=== PATIENT | female | born 1990 | race Caucasian/White ===

== ENCOUNTER 2024-03-03 04:46 | Inpatient (IN) | payer OTHER, SELFPAY ==
[2024-03-03] VITALS (11 sets, daily range): BP systolic 100–168; BP diastolic 57–100; PULSE 77–115; RESP 16–18; TEMP 36.8–37.4; O2SAT 98
[2024-03-03 06:50] LABS: Basophils Absolute Auto 0.1 K/mm3 (0.0-0.1); Basophils Percent Auto 0.2 % (0.2-1.2); Eosinophils Absolute Auto 0.1 K/mm3 (0-0.3); Eosinophils Percent Auto 0.3 % (0-4.4); Hematocrit 33.9 % (37.0-47.0); Immature Granulocyte Absolute 0.11 K/mm3 (0.00-0.031); Immature Granulocyte Percent A 0.5 % (0-0.5); Lymphocytes Percent Auto 15.7 % (18.3-44.2); Mean Corpuscular HGB Conc 32.4 g/dl (32-36); Mean Corpuscular Hemoglobin 29.6 pg (26-34); Mean Corpuscular Volume 91.4 fl (80-100); Mean Platelet Volume 11.4 fl (7.4-10.4); Monocytes Absolute Auto 1.4 K/mm3 (0.1-0.6); Monocytes Percent Auto 6.6 % (2.6-8.5); Neutrophils Absolute Auto 16.2 K/mm3 (1.3-6.7); Neutrophils Percent Auto 76.7 % (45.5-73.1); Platelet Count Result 297 k/mm3 (150-375); Red Blood Count 3.71 M/mm3 (4.2-5.4); Red Cell Distribution Width 13.2 % (11.5-14.5); White Blood Count 21.1 K/mm3 (4.5-10.0)
[2024-03-03] MEDS: OXYTOCIN 30 UNITS/NS 500 ML 30 UNITS/500 ML BAG 999 UNITS IV CONT (07:22)
[2024-03-03 07:32] LABS: Rapid Plasma Reagin Non-Reactive (NonReactive)
[2024-03-03 07:40] LABS: HIV 1/2 Ab P24 Ag Result Negative (Negative)
[2024-03-03] MEDS: METHYLERGONOVINE MALEATE 0.2 MG/ML VIAL IM (07:41)
--- NOTE | 2024-03-03 07:48 | P.PCNOB_ITS ---
OB - Vaginal Delivery Note Procedure Delivery date: 03/03/24 Induction method: None Delivery monitor: External FHT and External Uterine Route of delivery: Episiotomy description: None Laceration Description: Superficial Specimen: No Quantitative Blood Loss (ml): 75 Anesthesia type: None Disposition: Floor Complications: No immediate complications [place] Baby Date of : 03/03/24 Time of : 07:18 Gestational Age by Date: 37 gender: Female presentation: vertex position: Left Occiput Anterior Placenta delivery description: Spontaneous Cord Vessel Description: 3 Vessels score one minute: 7 score five minutes: 8 Narrative: mother and baby skin to skin instable condition
--- NOTE | 2024-03-03 07:48 | WPDOBADMIT ---
Obstetrics - Admit Note Admission Note: record reviewed. No pertinent additions to the history and/or any subsequent changes in the physical findings that are not consistent with the expected course of the were found. Additions to the history and/or subsequent changes in the physical findings follow. Admit in active labor with SROM at home
[2024-03-03] MEDS: OXYTOCIN 30 UNITS/NS 500 ML 30 UNITS/500 ML BAG 125 UNITS IV CONT (07:51)
[2024-03-03] MEDS: miSOPROStol 200 MCG TABLET 1000 MCG RECTAL (07:55)
[2024-03-03] MEDS: ceFAZolin 2 GM/D5W 50 ML 2 GM/50 ML BAG IVPB (08:21)
[2024-03-03] MEDS: BENZOCAINE 20% AER SPR (*SP) 56 GM CAN 1 SPRAY TOPICAL (08:22)
[2024-03-03] MEDS: WITCH HAZEL 40 PADS 1 PAD TOPICAL (08:22)
[2024-03-03] MEDS: IBUPROFEN 600 MG TABLET PO ×2 (08:23→20:15)
--- NOTE | 2024-03-03 08:38 | LDADM ---
This patient, Violeta Chin, was admitted to Labor/Delivery/Recovery 107 on 03/03/24 at 04:46. Plans for labor, pain management and were discussed with patient. Patient/family oriented to hospital policies and general routines including ID bracelet, bed and alarms, visiting hours, pain management, procedures, bathroom and other care routines, personal items, smoking policy, room service/diet and guest tray routines, infant security routines, and visiting hours. Patient/Family are encouraged to report perceived risks to care and to ask questions if they do not understand what they are told or what they should do. See [facility]BIX for further documentation.
--- NOTE | 2024-03-03 10:10 | PC.NURSE ---
Patient transferred to post room #277 via wheelchair. Support person present. Oriented to unit, room, information board, rooming in, admission packet and security measures. Patient verbalizes understanding.
--- NOTE | 2024-03-03 11:50 | PC.NURSE ---
Patient called out for assistance. When RN entered, mom had baby skin to skin and baby was sleeping. Mom states that she was rooting and mom placed her on the left breast for 10 minutes. Baby then fell asleep. We reviewed positioning, infant alignment, and latch on. Encouraged mother to feed baby on demand if she sees any feeding cues, or to wake baby at 2-3 hours from the last feeding. Mother was encouraged to call for assistance when she begins waking baby to feed so someone will have time to get to her room to assist her with positioning and latch on. phone number on board, mother will call for assistance as needed. Reported to primary RN.
[2024-03-03] MEDS: POLYSACCHARIDE IRON COMPLEX 150 MG CAPSULE PO (16:45)
[2024-03-03] MEDS: DOCUSATE SODIUM 100 MG CAPSULE PO (16:46)
--- NOTE | 2024-03-03 17:05 | PC.NURSE ---
1705: RN asked me to room to assist with feeding. Mother is trying to latch baby to the right breast in cross cradle hold. Baby is awake but her jaw is clenched and we aren't able to get a latch. We switched to the left breast but baby still would not open her mouth. Mom had already been trying for 10-15 minutes so we decided to take a 30 minute break and then try again. Encouraged mom to keep baby skin to skin and call out if she gave any feeding cues. 1735: Mother states that after we attempted and decided to take a break for a half hour, baby woke up and tried to latch. Mom says she independently latched to the left breast in cross cradle. Mom says she could see baby's jaw moving and she felt like it was a really good 5 minute feeding. After 5 minutes, baby let go of the breast and mom burped her. She knows to feed again in 2-3 hours and to call as needed for assistance. Reported to primary RN.
[2024-03-04] VITALS: BP 98/57; PULSE 74; RESP 18; TEMP 36.7; O2SAT 98
[2024-03-04 05:14] LABS: Hematocrit 28.1 % (37.0-47.0); Hemoglobin 9.1 g/dL (12.0-15.0)
--- NOTE | 2024-03-04 07:40 | PC.NURSE ---
Consulted with patient to assess needs related to . Discussed with mother her successes, concerns and any questions she has. Mother is currently using a nipple shield with feeds and pumping was initiated overnight with night RN. appears to have a shallow latch and has difficulty maintaining latch. We reviewed working with the infant, supporting breast, protecting her nipples with an optimal deep latch, good positioning, and good hand washing. At this time, mother needs max assist getting infant on the breast. Mother voices that she does not like using the nipple shield but will continue to use it, if needed. I reiterated with mother that the nipple shield use is not always permanent and that once becomes familiarized with breast feeding the nipple shield may no longer be needed. Mother was relieved to hear that this was the case. Encouraged understanding the benefits of skin to skin, responding to feeding cues, frequencies of feeding 8-12 times in 24 hours (approximately 2-3 hours), duration of feedings, milk production, intake/output feeding sheet and signs of adequate intake encouraging swallowing at the breast. Reviewed positioning and alignment, supporting breast, off-centered (asymmetrical latch) and leading with the chin with big, open, wide gape. Infant latched optimally to the left breast in football position with nipple shield in place. Education given to the mother of how to visualize the suckling (with good rocking jaw motion) swallows (dropping of the lower jaw) and how to listen for drinking at the breast (the ka sound). The infant was able to maintain latch without discomfort to mother. Nipple care reviewed with optimal latch, good positioning and using clean hands when touching her breast. Resources used to facilitate learning were used from the visual handouts. Mother is going to call this RN once feeding is complete to identify which flange size she should be using when pumping. Mother voiced understanding of the education shared, to call for assistance if the does not latch or if there is discomfort with . Reported to the Primary RN.
--- NOTE | 2024-03-04 08:15 | PM.OBPNVD ---
OB - PN: Subj Subjective Date/time seen: 03/04/24 08:15 Interval history: PPD#1 Doing well, pain well controlled Voiding without issue , discussed latching with nipple shield and pumping OB - PN: Obj Data Labs 03/04/24 03:47 Labs: Laboratory Results - last 24 hr 03/04/24 03:47 Hgb 9.1 L Hct 28.1 L OB - PN A/P Assessment and Plan (1) (spontaneous vaginal delivery): Code(s): O80 - Encounter for full-term uncomplicated delivery Status: Acute Plan day: 1 Plan: routine care Time Spent With Patient Time: Total time spent is greater than 50% in coordination of care (as documented) at patient's floor/unit and/or counseling patient: Review of Systems Review of Systems: All systems reviewed & are unremarkable except as noted in HPI and below Exam Const: General: comfortable and no acute distress Resp: Effort & Inspection: normal respiratory effort
[2024-03-04 08:55] VITALS: BP 102/47; PULSE 77; RESP 16; TEMP 36.3
[2024-03-04] MEDS: DOCUSATE SODIUM 100 MG CAPSULE PO ×2 (08:58→15:11)
--- NOTE | 2024-03-04 09:10 | PC.NURSE ---
Upon entering room, patient was tearful and stated that she didn't know why she was upset. candy catcher also present for this interaction. Mother states that she is just tired and hungry. I reiterated that she is doing a great job and that our staff is here for her if she needs someone to talk to. Mother was no longer tearful when exiting the room.
--- NOTE | 2024-03-04 13:00 | PC.NURSE ---
Called to room by mother - mother tearful upon entering room and discouraged. Assisted mother with latch, latched to the right breast in football hold with nipple shield in place. Mother put infant to breast with limited assistance from this RN.
[2024-03-04] MEDS: IBUPROFEN 600 MG TABLET PO (15:11)
[2024-03-04] MEDS: POLYSACCHARIDE IRON COMPLEX 150 MG CAPSULE PO (15:11)
--- NOTE | 2024-03-04 16:40 | PC.NURSE ---
Parents noted that they were able to successfully latch infant and noted a good feeding at this time.
[2024-03-04 20:00] VITALS: BP 115/77; PULSE 84; RESP 18; TEMP 36.9; O2SAT 98
[2024-03-05 08:00] VITALS: BP 115/73; PULSE 84; RESP 16; TEMP 36.3
[2024-03-05] MEDS: DOCUSATE SODIUM 100 MG CAPSULE PO (08:02)
--- NOTE | 2024-03-05 08:27 | PM.OBPNVD ---
OB - PN: Subj Subjective Date/time seen: 03/05/24 08:27 Interval history: PPD#2 Doing well, pain well controlled Voiding without issue Baby monitored for jaundice, ok for no care bed if baby is not discharged OB - PN: Obj Data Labs 03/04/24 03:47 OB - PN A/P Assessment and Plan (1) (spontaneous vaginal delivery): Code(s): O80 - Encounter for full-term uncomplicated delivery Status: Acute Plan day: 2 Plan: routine care and discharge home Time Spent With Patient Time: Total time spent is greater than 50% in coordination of care (as documented) at patient's floor/unit and/or counseling patient: Review of Systems Review of Systems: All systems reviewed & are unremarkable except as noted in HPI and below Exam Const: General: comfortable and no acute distress Orientation/consciousness: patient oriented x3 Resp: Effort & Inspection: normal respiratory effort
--- NOTE | 2024-03-05 08:30 | P.DS_ITS ---
DS: Admitting Diagnosis Discharge Date 03/05/24 Admitting Diagnosis labor DS: Discharge Diagnosis Discharge Diagnosis (1) (spontaneous vaginal delivery): Code(s): O80 - Encounter for full-term uncomplicated delivery Status: Acute OB - DS: Summary OB Procedures : None OB Procedures Intrapartum: Spontaneous Vag Delivery OB Procedures: : None Peripartum Data Laceration Description: Superficial Episiotomy description: None Time Spent with Patient Time attestation: Total time spent providing and/or coordinating discharge services: Discharge Plan Discharge Attending physician on discharge: Jovany Linares Discharging Clinician: Jovany Linares Patient Disposition: Home, Self-Care Activity: may shower, as tolerated and pelvic rest Diet: as tolerated Patient Instructions: Antibiotic Form Stand Alone Forms: General Discharge Information Follow-up/Referrals: Lupe Clifford CNM [Certified Nurse Project Management Consultant] - 4 Weeks Discharge Medications: New docusate sodium 100 mg Capsule 100 mg PO BID PRN (Reason: Constipation) Qty: 60 0RF ibuprofen 600 mg Tablet 600 mg PO Q6H PRN (Reason: Cramping) Qty: 30 0RF Continued Vitamin Tablet 1 tablet PO DAILY ferrous sulfate 27 mg iron Tablet 27 mg PO DAILY Date of admission: 03/03/24 04:46 Primary Care Provider: UNKNOWN,DOCTOR Admitting Provider: Colt Miller Attending physician on admission: Colt Miller Condition: Stable
--- NOTE | 2024-03-06 07:50 | PC.NURSE ---
Report from Day RN that patient was tearful this morning r/t and infant being treated for jaundice. This RN checked in with patient and patient stated that infant was able to latch well with nipple shield in place. Mother is pumping and has great output. She collected 40cc this pump session. Education provided related to storing breastmilk and using breastmilk for supplementation after feeds. She is currently supplementing after each feed per MD orders. Mother began to be tearful during this conversation and stated that they were happy sad tears . Mother feeds overwhelmed, this RN comforted mother and instructed her to call for any questions or concerns.
[2024-03-07 09:49] VITALS: BP 160/86; PULSE 55; RESP 18; TEMP 36.6; O2SAT 100
== END 2024-03-05 17:30 | disposition home or self-care (01) | DRG 807 ==
LOC: ANHLDR 06:35 → ANHOB2 10:12
PROVIDERS: Admitting Provider Advanced Practice Midwife; Referring Provider Advanced Practice Midwife; Visit Provider Obstetrics & Gynecology
DX: O62.3 Precipitate labor (principal); Z37.0 Single live birth; O70.0 First degree perineal laceration during delivery; Z3A.37 37 weeks gestation of pregnancy; O69.81X0 Labor and delivery complicated by cord around neck, without compression, not applicable or unspecified
CPT/HCPCS: 36415; 85014; 85018; 85025; 86592; 86703; 86850; 86900; 86901; A9270; G0432; J0690; J2210; J2590

== ENCOUNTER 2024-03-07 10:06 | Outpatient (RCR) | payer OTHER, SELFPAY ==
[2024-03-07] VITALS (19 sets, daily range): BP systolic 126–151; BP diastolic 72–88; PULSE 49–71; O2SAT 98–100; BMI 28.4
[2024-03-07 11:05] LABS: Basophils Absolute Auto 0.1 K/mm3 (0.0-0.1); Basophils Percent Auto 0.6 % (0.2-1.2); Eosinophils Absolute Auto 0.3 K/mm3 (0-0.3); Eosinophils Percent Auto 2.8 % (0-4.4); Hemoglobin 9.5 g/dL (12.0-15.0); Immature Granulocyte Absolute 0.12 K/mm3 (0.00-0.031); Immature Granulocyte Percent A 1.3 % (0-0.5); Lymphocytes Absolute Auto 1.73 K/mm3 (0.9-3.2); Lymphocytes Percent Auto 18.1 % (18.3-44.2); Mean Corpuscular HGB Conc 31.7 g/dl (32-36); Mean Corpuscular Hemoglobin 29.6 pg (26-34); Mean Corpuscular Volume 93.5 fl (80-100); Mean Platelet Volume 10.2 fl (7.4-10.4); Monocytes Absolute Auto 0.6 K/mm3 (0.1-0.6); Monocytes Percent Auto 6.1 % (2.6-8.5); Neutrophils Absolute Auto 6.8 K/mm3 (1.3-6.7); Neutrophils Percent Auto 71.1 % (45.5-73.1); Platelet Count Result 272 k/mm3 (150-375); Red Blood Count 3.21 M/mm3 (4.2-5.4); White Blood Count 9.6 K/mm3 (4.5-10.0)
[2024-03-07 11:15] LABS: Alanine Aminotransferase 37 U/L (6-35); Albumin Level 3.3 g/dL (3.5-5.1); Alkaline Phosphatase 157 U/L (38-126); Anion Gap 7 mmol/L (4-12); Aspartate Amino Transferase 51 U/L (14-36); Bilirubin,Total 0.2 mg/dL (0.2-1.3); Blood Urea Nitrogen 10 mg/dL (7-17); Calcium 8.5 mg/dL (8.4-10.2); Carbon Dioxide 27 mmol/L (22-30); Chloride 102 mmol/L (98-107); Estimated CRCL calculation 95 ml/min; Estimated Glomerular Filt Rate > 60; Glucose 87 mg/dL (65-110); Potassium 4.3 mmol/L (3.4-5.0); Sodium 136 mmol/L (137-145); Uric Acid 5.4 mg/dL (2.5-7.5)
--- NOTE | 2024-03-07 11:39 | PC.NURSE ---
Dr. Linares informed of BP's and lab results including elevated liver enzymes. Pt has no headache or visual disturbance, but does have 1+ pitting in her ankles and DTR's are 3+ and no clonus. Order received to discharge to home with warning signs of preeclampsia. will have Frantz Clifford CNM call pt tomorrow to schedule further follow up in the office.
--- NOTE | 2024-03-07 11:54 | PC.NURSE ---
Pt has ordered lunch and would like to see the data power consultant before going home.
--- NOTE | 2024-03-07 12:10 | PC.NURSE ---
Seth Puri RN here to assist pt with some concerns.
--- NOTE | 2024-03-07 16:07 | PC.NURSE ---
1215. Violeta is here for a PP hypertension evaluation and she requested to see for feeding difficulties. She reports baby was born 3 weeks early and she has been feeding baby since discharge every 3 hours. She reports sometimes baby acts sleepy at the breast and does not want to complete an entire feed at the breast, so she tops her up with about 40ml of EBM. She reports was down 9% in the hospital before discharge but at her followup appointment today she is back up in weight and at 6% loss. She says baby typically lasts longer at the breast with the nipple shield. They are planning on following up with dr Camilo in [place] on . Baby girls discharge weight was 3021g and her current weight today is 3110g which is a 6% loss from her weight. Baby girl was assessed a zone 1 in her followup for jaundice. Mother also has flat nipples. We reviewed working with the with the nipple shield and proper use of it. We were able to latch baby with the shield to the left breast in cross cradle position for about 15 min. Infant was able to maintain an appropriate latch. Mother declines nipple pain/discomfort throughout feeding. Encouraged mother to keep infant awake and nursing at the breast for 15 minutes and if baby unable to stay away for the 15 min then to top up with EBM or formula. Mother taught to listen for swallowing during feedings. Also encouraged mother to call her mortgage loan specialist and see if she can get in sooner than for a followup due to not waking on her own at 3 hours to feed and continuing to acting sleepy/reluctatant to feed and stay awake long enough to finish a feed. Explained that that continues to be difficult to feed at this point could be a concern so to call her mortgage loan specialist and follow up as soon as able. Mother verbalized understanding and plans to call mortgage loan specialist and see if she can get in with him tomorrow. Mom encouraged to call number for further questions or need for an outpatient appointment. She verbalized understanding.
== END 2024-03-07 13:05 | disposition home or self-care (01) ==
LOC: ANHOBOP 10:06
PROVIDERS: Obstetrics & Gynecology; Visit Provider Advanced Practice Midwife
DX: O16.5 Unspecified maternal hypertension, complicating the puerperium (principal); R63.30 Feeding difficulties, unspecified
CPT/HCPCS: 36415; 80053; 84550; 85025

== ENCOUNTER 2024-03-08 08:40 | Outpatient (CLI) | payer OTHER, SELFPAY ==
[2024-03-08 09:16] LABS: Basophils Percent Auto 0.4 % (0.2-1.2); Eosinophils Absolute Auto 0.3 K/mm3 (0-0.3); Eosinophils Percent Auto 2.5 % (0-4.4); Hematocrit 30.8 % (37.0-47.0); Hemoglobin 9.8 g/dL (12.0-15.0); Immature Granulocyte Absolute 0.15 K/mm3 (0.00-0.031); Immature Granulocyte Percent A 1.4 % (0-0.5); Lymphocytes Absolute Auto 1.98 K/mm3 (0.9-3.2); Lymphocytes Percent Auto 18.1 % (18.3-44.2); Mean Corpuscular HGB Conc 31.8 g/dl (32-36); Mean Corpuscular Hemoglobin 29.7 pg (26-34); Mean Corpuscular Volume 93.3 fl (80-100); Mean Platelet Volume 9.9 fl (7.4-10.4); Monocytes Absolute Auto 0.8 K/mm3 (0.1-0.6); Monocytes Percent Auto 6.8 % (2.6-8.5); Neutrophils Absolute Auto 7.8 K/mm3 (1.3-6.7); Neutrophils Percent Auto 70.8 % (45.5-73.1); Platelet Count Result 307 k/mm3 (150-375); Red Cell Distribution Width 14.2 % (11.5-14.5)
[2024-03-08 09:20] VITALS: BP 135/86; PULSE 58
[2024-03-08 09:30] VITALS: BP 131/78; PULSE 56
[2024-03-08 09:36] LABS: Chloride 101 mmol/L (98-107)
[2024-03-08 09:45] VITALS: BP 122/80; PULSE 59
[2024-03-08 09:47] LABS: Alanine Aminotransferase 40 U/L (6-35); Albumin Level 3.4 g/dL (3.5-5.1); Alkaline Phosphatase 144 U/L (38-126); Anion Gap 7 mmol/L (4-12); Aspartate Amino Transferase 43 U/L (14-36); Bilirubin,Total 0.3 mg/dL (0.2-1.3); Blood Urea Nitrogen 12 mg/dL (7-17); Calcium 8.5 mg/dL (8.4-10.2); Carbon Dioxide 28 mmol/L (22-30); Estimated Glomerular Filt Rate > 60; Glucose 84 mg/dL (65-110); Potassium 4.6 mmol/L (3.4-5.0); Sodium 136 mmol/L (137-145); Uric Acid 5.8 mg/dL (2.5-7.5)
[2024-03-08 10:00] VITALS: BP 132/75; PULSE 54
[2024-03-08 10:13] VITALS: BP 142/80; PULSE 57
== END 2024-03-08 10:30 | disposition home or self-care (01) ==
LOC: ANHOBOP 08:44 → ANHOBPP 08:47
PROVIDERS: Visit Provider Advanced Practice Midwife
DX: O13.9 Gestational [pregnancy-induced] hypertension without significant proteinuria, unspecified trimester (principal); Z3A.00 Weeks of gestation of pregnancy not specified
CPT/HCPCS: 36415; 80053; 84550; 85025; 99199